=== PATIENT | male | born 1995 | race Caucasian/White ===

== ENCOUNTER 2017-04-03 13:13 | Emergency (ER) | payer OTHER ==
[~2017-04-03] VITALS: Ht 180.3 cm; Wt 80.7 kg
[2017-04-03] MEDS ORDERED: IBUP80TA PO (15:07)
[2017-04-03] MEDS ORDERED: MEDR4PAK PO (15:07)
[2017-04-03] MEDS ORDERED: ZANA4TAB PO (15:07)
[2017-04-03 15:12] VITALS: BP 127/67
--- NOTE | 2017-04-03 15:21 | REP ---
LUMBOSACRAL SPINE: Five views of the lumbosacral spine performed. There is no compression fracture. There is no spondylolysis or spondylolisthesis. The disc spaces are well preserved. There is straightening of the normal lumbar lordosis, which may indicate spasm. The posterior elements appear intact. IMPRESSION: No fracture or dislocation. Straightening may indicate spasm. Signed by Des Soler MD 04/03/2017 04:52 P
== END 2017-04-03 15:16 | disposition home or self-care (01) ==
LOC: M ED 14:10
DX: M54.5 Low back pain (principal)